=== PATIENT | male | born 1950 | race African-American/Black ===

== ENCOUNTER 2017-01-14 21:29 | Emergency (ER) | payer MEDICARE ==
[~2017-01-14] VITALS: Ht 182.9 cm; Wt 140.6 kg
[2017-01-14] MEDS ORDERED: ONDANSETRON ODT 4 MG TAB.RAPDIS. PO ONE (22:00)
[2017-01-14] MEDS ORDERED: traMADol 50 MG TABLET PO ONE (22:00)
[2017-01-14] MEDS ORDERED: IBUPROFEN 600 MG TABLET. PO ONE (22:00)
[2017-01-14] MEDS ORDERED: NEOMY/BACITR/POLYMYXIN OINT PACKET. TP ONE (22:00)
[2017-01-14] MEDS ORDERED: DIPHTH,PERTUSS(ACELL),TET TOX 0.5 ML DISP.SYRIN. VAX IM ONE (22:00)
--- NOTE | 2017-01-14 22:14 | RAD ---
EXAM: Head CT without contrast. HISTORY: Fall. TECHNIQUE: Computed tomographic images of the head were obtained without contrast. *One or more of the following individualized dose reduction techniques were utilized for this examination: 1. Automated exposure control. 2. Adjustment of the mA and/or kV according to patient size. 3. Use of iterative reconstruction technique. COMPARISON: None. FINDINGS: There is no acute or subacute extra-axial or intraparenchymal hemorrhage. There is no mass effect or midline shift. There is no hydrocephalus. There are areas of decreased attenuation within the cerebral white matter, nonspecific and likely related to chronic small vessel disease. There is cerebral volume loss with compensatory enlargement of the ventricles The visualized portions of the orbits, paranasal sinuses and mastoid air cells are unremarkable. No suspicious calvarial lesion is seen. IMPRESSION: 1. Scattered areas of hypodensity throughout the cerebral white, a nonspecific finding likely due to chronic small vessel disease. 2. Cerebral volume loss with compensatory enlargement of the ventricles. This is greater than expected for patient age. Electronically signed by: Johana Laura MD (01/14/2017 10:11 PM) [id number]
[2017-01-14] MEDS ORDERED: IBUP-1007 PO (22:51)
[2017-01-14] MEDS ORDERED: TRAM-48 PO (22:51)
[2017-01-14] MEDS ORDERED: CEPH-264 PO (22:51)
[2017-01-14] MEDS ORDERED: CEPHALEXIN 250 MG CAPSULE. PO STA (22:52)
--- NOTE | 2017-01-14 22:52 | PHYS DOC ---
Past Medical History Past Medical History: Depression Additional Past Medical Histor: Enlarged Prostate Past Surgical History: No Surgical History Alcohol Use: None Drug Use: None Adult General Chief Complaint Chief Complaint: HEAD INJURY/TRAUMA HPI HPI Patient is a 66 year old [f__sex] who presents with [] Review of Systems Review of Systems Constitutional: Denies fever or chills [] Eyes: Denies change in visual acuity, redness, or eye pain [] HENT: Denies nasal congestion or sore throat [] Respiratory: Denies cough or shortness of breath [] Cardiovascular: No additional information not addressed in HPI [] GI: Denies abdominal pain, nausea, vomiting, bloody stools or diarrhea [] : Denies dysuria or hematuria [] Musculoskeletal: Denies back pain or joint pain [] Integument: Denies rash or skin lesions [] Neurologic: Denies headache, focal weakness or sensory changes [] Endocrine: Denies polyuria or polydipsia [] Current Medications Current Medications Current Medications Medications (Trade) Dose Ordered Sig/Martinez Start Time Stop Time Status Last Admin Dose Admin Diphtheria/ Tetanus/Acell Pertussis (Boostrix) 0.5 ml ONCE ONCE 01/14/17 22:00 01/14/17 22:01 DC 01/14/17 22:14 0.5 ML Ibuprofen (Motrin) 600 mg 1X ONCE 01/14/17 22:00 01/14/17 22:01 DC 01/14/17 22:13 600 MG Neomycin/ Polymyxin/ Bacitracin (Triple Antibiotic Ointment) 2 pkt 1X ONCE 01/14/17 22:00 01/14/17 22:01 DC 01/14/17 22:13 2 PKT Ondansetron HCl (Zofran Odt) 4 mg 1X ONCE 01/14/17 22:00 01/14/17 22:01 DC 01/14/17 22:13 4 MG Tramadol HCl (Ultram) 50 mg 1X ONCE 01/14/17 22:00 01/14/17 22:01 DC 01/14/17 22:13 50 MG Allergies Allergies Allergies Coded Allergies Type Severity Reaction Last Updated Verified Penicillins Allergy Severe throat swelling 01/14/17 Yes Sulfa (Sulfonamide Antibiotics) Allergy Intermediate Groin Rash 01/14/17 Yes Physical Exam Physical Exam Constitutional: Well developed, well nourished, no acute distress, non-toxic appearance. [] HENT: Normocephalic, atraumatic, bilateral external ears normal, oropharynx moist, no oral exudates, nose normal. [] Eyes: PERRLA, EOMI, conjunctiva normal, no discharge. [] Neck: Normal range of motion, no tenderness, supple, no stridor. [] Cardiovascular:Heart rate regular rhythm, no murmur [] Lungs & Thorax: Bilateral breath sounds clear to auscultation [] Abdomen: Bowel sounds normal, soft, no tenderness, no masses, no pulsatile masses. [] Skin: Warm, dry, no erythema, no rash. [] Back: No tenderness, no CVA tenderness. [] Extremities: No tenderness, no cyanosis, no clubbing, ROM intact, no edema. [] Neurologic: Alert and oriented X 3, normal motor function, normal sensory function, no focal deficits noted. [] Psychologic: Affect normal, judgement normal, mood normal. [] Current Patient Data Vital Signs Vital Signs Date Time Temp Pulse Resp B/P (MAP) Pulse Ox O2 Delivery O2 Flow Rate FiO2 01/14/17 21:42 98.4 83 18 152/65 (94) 97 Room Air 98.4 EKG EKG [] Radiology/Procedures Radiology/Procedures [] Course & Med Decision Making Course & Med Decision Making Pertinent Labs and Imaging studies reviewed. (See chart for details) [] Dragon Disclaimer Dragon Disclaimer This electronic medical record was generated, in whole or in part, using a voice recognition dictation system. Departure Departure Impression: Primary Impression: Lip laceration Additional Impressions: Head trauma Facial abrasion Disposition: 01 HOME, SELF-CARE Condition: IMPROVED Referrals: NO PCP (PCP) Patient Instructions: Abrasions, Head Injury, Adult, Mouth Laceration Scripts Tramadol Hcl (ULTRAM) 50 Mg Tablet 1 TAB PO Q6HRS, #14 TAB Prov: MARCY MARQUEZ MD 01/14/17 Cephalexin (KEFLEX) 500 Mg Capsule 500 MG PO QID for 10 Days, #40 CAP Prov: MARCY MARQUEZ MD 01/14/17 Ibuprofen (IBUPROFEN) 600 Mg Tablet 600 MG PO PRN Q6HRS Y for PAIN, #20 TAB Prov: MARCY MARQUEZ MD 01/14/17 Problem Qualifiers Primary Impression: Lip laceration Encounter type: initial encounter Qualified Codes: S01.511A - Laceration without foreign body of lip, initial encounter Additional Impressions: Head trauma Encounter type: initial encounter Qualified Codes: S09.90XA - Unspecified injury of head, initial encounter Facial abrasion Encounter type: initial encounter Qualified Codes: S00.81XA - Abrasion of other part of head, initial encounter MARCY MARQUEZ MD Jan 14, 2017 22:52
[2017-01-14] MEDS ORDERED: CEPHALEXIN 250 MG CAPSULE. ONE (23:24)
[2017-01-14 23:25] VITALS: BP 129/65
== END 2017-01-14 23:37 | disposition home or self-care (01) ==
LOC: ER 21:29
DX: S01.511A Laceration without foreign body of lip, initial encounter (principal); S00.81XA Abrasion of other part of head, initial encounter; S09.90XA Unspecified injury of head, initial encounter; F32.9 Major depressive disorder, single episode, unspecified; N40.0 Benign prostatic hyperplasia without lower urinary tract symptoms; Z88.0 Allergy status to penicillin; Z88.2 Allergy status to sulfonamides; X58.XXXA Exposure to other specified factors, initial encounter; Y93.89 Activity, other specified; Y92.89 Other specified places as the place of occurrence of the external cause; Y99.8 Other external cause status
CPT/HCPCS: 70450; 90471; 90715; 99284; Q0162